=== PATIENT | male | born 1985 | race Hispanic/Latino ===

== ENCOUNTER 2023-03-04 22:18 | Observation (INO) | payer OTHER ==
[~2023-03-04] VITALS: Ht 162.6 cm; Wt 78.7 kg
[2023-03-04 22:54] LABS: BASOPHILS # (AUTO) 0.04 K/uL (0.00-0.20); BASOPHILS % (AUTO) 0.2 % (0.0-5.0); EOSINOPHILS # (AUTO) 0.17 K/uL (0.00-0.70); EOSINOPHILS % (AUTO) 0.8 % (0.0-8.0); HEMATOCRIT 37.4 % (42-54); IMMATURE GRANULOCYTE ABSOLUTE 0.09 K/uL (0-1); LYMPHOCYTES # (AUTO) 5.5 K/uL (1.0-4.8); LYMPHOCYTES % (AUTO) 25.3 % (21.0-51.0); MEAN CORPUSCULAR HEMOGLOBIN 28.8 pg (27.0-33.0); MEAN CORPUSCULAR HGB CONC 35.8 g/dL (32.0-36.0); MEAN CORPUSCULAR VOLUME 80.4 fL (79-99); MONOCYTES # (AUTO) 1.5 K/uL (0.1-1.0); MONOCYTES % (AUTO) 6.8 % (3.0-13.0); NEUTROPHILS # (AUTO) 14.4 K/uL (1.8-7.7); NEUTROPHILS % (AUTO) 66.5 % (40.0-77.0); PLATELET COUNT (AUTO) 261 K/uL (130-400); RED BLOOD CELL COUNT(AUTO) 4.65 MIL/uL (4.50-6.20); RED CELL DISTRIBUTION WIDTH 12.2 % (11.0-15.5); WHITE BLOOD COUNT (AUTO) 21.7 K/uL (4.8-10.8)
[2023-03-04 23:04] LABS: CREATININE 1.2 mg/dL (0.5-1.5); POTASSIUM 5.3 mmol/L (3.5-5.1)
[2023-03-04 23:08] LABS: ALBUMIN 3.5 g/dL (3.5-5.0); BILIRUBIN,TOTAL 0.6 mg/dL (0.2-1.0); TOTAL PROTEIN, SERUM 8.4 g/dL (6.0-8.3)
[2023-03-04 23:21] LABS: EOSINOPHILS % (MANUAL) 2 % (1-6); LYMPHOCYTES % (MANUAL) 27 % (22-44); MONOCYTES % (MANUAL) 6 % (2-9); SEGMENTED NEUTROPHILS % 65 % (40-70); TOTAL CELLS COUNTED 100
[2023-03-04 23:22] LABS: MAN.DIFF COMMENT-IMPRESSION MANUAL DIFFERENTIAL
[2023-03-04] MEDS ORDERED: IOHEXOL-350 75 ML VIAL IV ONE (23:49)
[2023-03-05] VITALS (27 sets, daily range): BP systolic 91–165; BP diastolic 39–98; PULSE 67–97; RESP 14–19; O2SAT 98–100
[2023-03-05] MEDS ORDERED: 0.9%NACL 1000ML 1,000 ML IV ONE
[2023-03-05] MEDS ORDERED: ZOSYN 3.375GM +NS 50ML IV ONE (01:30)
[2023-03-05] MEDS ORDERED: MORPHINE 2 MG SYG IVP ONE (01:30)
[2023-03-05] MEDS: ZOSYN 3.375GM +NS 50ML IVPB SCH ×3 (02:00→18:11)
[2023-03-05] MEDS ORDERED: ONDANSETRON 4MG INJ IVP PRN (02:00)
[2023-03-05] MEDS ORDERED: HYDROMORPHONE 0.5 MG SYG (0.5MG/0.5ML) IVP PRN (02:00)
[2023-03-05] MEDS: 0.9%NACL 1000ML 1,000 ML IV SCH ×2 (02:04→15:18)
[2023-03-05 07:01] LABS: APPEARANCE,URINE CLEAR (CLEAR); BILIRUBIN,URINE NEGATIVE (NEGATIVE); COLOR,URINE LIGHT-YELLOW (YELLOW); GLUCOSE, URINE (UA) 300 mg/dL (NEGATIVE); KETONES,URINE NEGATIVE (NEGATIVE); LEUKOCYTE ESTERASE ,URINE NEGATIVE Leu/uL (NEGATIVE); NITRATE,URINE NEGATIVE (NEGATIVE); OCCULT BLOOD,URINE SMALL (NEGATIVE); PH,URINE 5.5 (5.0-8.0); PROTEIN,URINE 30 mg/dL (NEGATIVE); UROBILINOGEN,URINE 0.2 mg/dL (0.2-1.0)
[2023-03-05 07:02] LABS: ADD UA MICROSCOPIC YES
[2023-03-05 07:05] LABS: MUCUS,URINE RARE LPF (None Seen); SQUAMOUS EPITHELIAL CELL,UR RARE /HPF (0-2)
[2023-03-05 07:32] LABS: HEMATOCRIT 36.3 % (42-54); MEAN CORPUSCULAR HEMOGLOBIN 29.2 pg (27.0-33.0); MEAN CORPUSCULAR HGB CONC 35.3 g/dL (32.0-36.0); MEAN CORPUSCULAR VOLUME 82.9 fL (79-99); PLATELET COUNT (AUTO) 263 K/uL (130-400); RED BLOOD CELL COUNT(AUTO) 4.38 MIL/uL (4.50-6.20); RED CELL DISTRIBUTION WIDTH 12.3 % (11.0-15.5); WHITE BLOOD COUNT (AUTO) 16.2 K/uL (4.8-10.8)
[2023-03-05 07:43] LABS: CREATININE 1.1 mg/dL (0.5-1.5); MAGNESIUM 1.6 mg/dL (1.80-2.40); POTASSIUM 4.1 mmol/L (3.5-5.1)
[2023-03-05 08:32] LABS: BASOPHILS % (MANUAL) 1 % (0-2); EOSINOPHILS % (MANUAL) 2 % (1-6); LYMPHOCYTES % (MANUAL) 25 % (22-44); MAN.DIFF COMMENT-IMPRESSION MANUAL DIFFERENTIAL; MONOCYTES % (MANUAL) 6 % (2-9); PLATELET MORPHOLOGY COMMENT ADEQUATE; SEGMENTED NEUTROPHILS % 66 % (40-70); TOTAL CELLS COUNTED 100
[2023-03-05] MEDS: INSULIN GLARGINE 100 UNITS/ML 10 ML VIAL SQ SCH (08:57)
[2023-03-05] MEDS: INSULIN HUMULIN R 100 UNIT/ML 3ML SQ SCH ×4 (08:58→20:27)
[2023-03-05] MEDS ORDERED: BUPIVACAINE/PF 0.25% 30ML VIAL IJ ONE (12:03)
[2023-03-05] MEDS ORDERED: LIDOCAINE 2%-EPI 1:200,000 20 ML VIAL IJ ONE (12:03)
[2023-03-05] MEDS ORDERED: CEFAZOLIN SODIUM 1 GM VIAL ONE (12:03)
[2023-03-05] MEDS ORDERED: MIDAZOLAM HCL 1 MG/ML 2ML VIAL ONE (13:03)
[2023-03-05] MEDS ORDERED: PROPOFOL 10 MG/ML 20ML VIAL IV ONE (13:03)
[2023-03-05] MEDS ORDERED: SUCCINYLCHOLINE CHLORIDE 20 MG/ML 10 ML VIAL ONE (13:03)
[2023-03-05] MEDS ORDERED: LIDOCAINE PF 100MG/5ML (2%) SYRINGE 5ML ONE (13:03)
[2023-03-05] MEDS ORDERED: ROCURONIUM BROMIDE 10MG/1ML 5ML VL ONE (13:03)
[2023-03-05] MEDS ORDERED: FENTANYL CITRATE PF 50 MCG/1 ML 2ML VIAL ONE (13:06)
[2023-03-05] MEDS ORDERED: BUPIVACAINE/EPI/PF 0.25% 30ML VIAL IJ ONE (13:27)
[2023-03-05] MEDS ORDERED: GLYCOPYRROLATE 1 MG/5 ML SYRINGE ONE (13:28)
[2023-03-05] MEDS ORDERED: NEOSTIGMINE 5MG/5ML SYR IV ONE (13:51)
[2023-03-05] MEDS ORDERED: KETOROLAC 30MG VIAL (30MG/ML) ONE (14:06)
[2023-03-05] MEDS ORDERED: MEPERIDINE-PF 25 MG/ML SYG ONE (14:06)
[2023-03-06] MEDS: 0.9%NACL 1000ML 1,000 ML IV SCH ×2 (01:18→10:00)
[2023-03-06] MEDS: ZOSYN 3.375GM +NS 50ML IVPB SCH ×2 (01:27→09:59)
[2023-03-06 01:32] VITALS: BP 160/87; PULSE 80
[2023-03-06 03:00] VITALS: BP 163/92; PULSE 80; RESP 18
[2023-03-06 04:00] LABS: BASOPHILS # (AUTO) 0.02 K/uL (0.00-0.20); BASOPHILS % (AUTO) 0.2 % (0.0-5.0); EOSINOPHILS # (AUTO) 0.05 K/uL (0.00-0.70); EOSINOPHILS % (AUTO) 0.4 % (0.0-8.0); HEMATOCRIT 34.5 % (42-54); IMMATURE GRANULOCYTE ABSOLUTE 0.04 K/uL (0-1); LYMPHOCYTES # (AUTO) 2.5 K/uL (1.0-4.8); LYMPHOCYTES % (AUTO) 19.3 % (21.0-51.0); MEAN CORPUSCULAR HEMOGLOBIN 28.8 pg (27.0-33.0); MEAN CORPUSCULAR HGB CONC 35.4 g/dL (32.0-36.0); MEAN CORPUSCULAR VOLUME 81.4 fL (79-99); MONOCYTES # (AUTO) 0.8 K/uL (0.1-1.0); MONOCYTES % (AUTO) 6.1 % (3.0-13.0); NEUTROPHILS # (AUTO) 9.7 K/uL (1.8-7.7); NEUTROPHILS % (AUTO) 73.7 % (40.0-77.0); PLATELET COUNT (AUTO) 251 K/uL (130-400); RED BLOOD CELL COUNT(AUTO) 4.24 MIL/uL (4.50-6.20); WHITE BLOOD COUNT (AUTO) 13.1 K/uL (4.8-10.8)
[2023-03-06 04:27] LABS: CREATININE 0.8 mg/dL (0.5-1.5); MAGNESIUM 1.6 mg/dL (1.80-2.40); POTASSIUM 3.9 mmol/L (3.5-5.1)
[2023-03-06] MEDS: INSULIN HUMULIN R 100 UNIT/ML 3ML SQ SCH (06:12)
[2023-03-06] MEDS: INSULIN GLARGINE 100 UNITS/ML 10 ML VIAL SQ SCH (07:00)
[2023-03-06 07:40] VITALS: O2SAT 100
[2023-03-06 08:00] VITALS: BP 162/95; PULSE 72; RESP 20
[2023-03-06 12:00] VITALS: BP 153/94; PULSE 82; RESP 18
== END 2023-03-06 15:15 | disposition home or self-care (01) ==
LOC: EDH 22:18 → EDHIP 03-05 01:35 → INTOOBSV 03-05 01:35 → 4CH 03-05 02:40
PROVIDERS: ADMIT Internal Medicine; ATTEND Internal Medicine
DX: K35.80 Unspecified acute appendicitis (principal); R10.84 Generalized abdominal pain; D72.829 Elevated white blood cell count, unspecified; R11.2 Nausea with vomiting, unspecified; E11.9 Type 2 diabetes mellitus without complications; I10 Essential (primary) hypertension; E78.5 Hyperlipidemia, unspecified; Z86.16 Personal history of COVID-19
CPT/HCPCS: 99285; 82550; 84484; 80053; 83690; 85025 ×3; 82948 ×8; 74178; 93005; 44970; 96372; 96361; 96365; 96366 ×2; 96375; 83735 ×2; 80048 ×2; 81001; 36415 ×2; 88304; Q9967; J7030; A4344; J3010; J0690; J3490 ×4; J2710; J0330; J2270; J0665; J2001; J2250; J2704; J2543 ×5; J1170; C1769 ×3; A4649 ×4; A4930; G0378 ×3; J1885; J2175

== ENCOUNTER 2024-04-05 08:31 | Emergency (ER) | payer SELFPAY ==
[~2024-04-05] VITALS: Ht 162.6 cm; Wt 79.4 kg
[2024-04-05 09:08] LABS: BASOPHILS # (AUTO) 0.02 K/uL (0.00-0.20); BASOPHILS % (AUTO) 0.2 % (0.0-5.0); EOSINOPHILS # (AUTO) 0.02 K/uL (0.00-0.70); EOSINOPHILS % (AUTO) 0.2 % (0.0-8.0); HEMATOCRIT 42.8 % (42-54); IMMATURE GRANULOCYTE ABSOLUTE 0.02 K/uL (0-1); LYMPHOCYTES # (AUTO) 1.6 K/uL (1.0-4.8); LYMPHOCYTES % (AUTO) 19.1 % (21.0-51.0); MEAN CORPUSCULAR HEMOGLOBIN 28.7 pg (27.0-33.0); MEAN CORPUSCULAR HGB CONC 35.3 g/dL (32.0-36.0); MEAN CORPUSCULAR VOLUME 81.4 fL (79-99); MONOCYTES # (AUTO) 1.5 K/uL (0.1-1.0); MONOCYTES % (AUTO) 17.6 % (3.0-13.0); NEUTROPHILS # (AUTO) 5.4 K/uL (1.8-7.7); NEUTROPHILS % (AUTO) 62.7 % (40.0-77.0); PLATELET COUNT (AUTO) 176 K/uL (130-400); RED BLOOD CELL COUNT(AUTO) 5.26 MIL/uL (4.50-6.20); WHITE BLOOD COUNT (AUTO) 8.6 K/uL (4.8-10.8)
--- NOTE | 2024-04-05 09:20 | ERN ---
General Chief Complaint: Cough Stated Complaint: COUGH Time Seen by MD: 08:50 History of Present Illness Initial Comments Mr. Lora 38-year-old male with past medical history of Diabetes came to ER with complaints of generalized weakness shortness of breath, cough and vomiting since the 3 days. 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 No recent traveling history. He denies chest pain or palpitations or dizziness. Patient is noncompliant with his diabetic medication. Allergies: Coded Allergies: No Known Allergies (Unverified Allergy, Unknown, 03/04/23) Home Meds No Active Prescriptions or Reported Meds Past Medical History Past Medical History: No Pertinent History Past Surgical History: Appendectomy Family History Family History: Negative Social History Social History: Negative, Lives with family ROS Dictation ROS Constitutional: No appetite loss, No fevers, chills , No night sweats, No weakness, fatigue Eye: No vision change, No redness, pain or discharge ENT: No hearing loss, ear pain or discharge, No nose bleeds, No sore throat, Neck: No swelling. pain or stiffness Respiratory: Cough, shortness of breath since 3 days Cardiovascular: No chest pain,, palpitations, dyspnea, No edema Gastrointestinal: No abdominal pain, nausea, vomiting, No diarrhea, constipation Genitourinary: No painful urination, No blood in urine, No urinary incontinence, No frequency or urgency Musculoskeletal: No joint pain, muscle pain, swelling or stiffness Neurological: No numbness, tingling, No weakness, tremors or seizures Physical Exam Physical Exam Dictation General: Alert & Oriented, in moderate distress. EENT: No conjunctival redness or discharge noted Tympanic membranes are clear, Normal hearing, Oral mucosa is moist, No pharyngeal erythema, No nasal discharge, No oral lesions. Neck: Non-tender, No jugular vein distention, No lymphadenopathy, No thyromegaly, Supple. Respiratory: Lungs are clear to auscultation, Breath sounds are equal, No chest wall tenderness, _. Cardiovascular: Normal rate, Normal rhythm, No murmur, Good pulses equal in all extremities, Normal peripheral perfusion, No edema. Gastrointestinal: Soft, Non-tender, Non-distended, Normal bowel sounds, No organomegaly, _. Musculoskeletal: Normal range of motion, Normal strength, No tenderness, No swelling, No deformity, Normal gait. Integumentary: Warm, Dry, [place], Intact, No pallor, No rash. Neurologic: Alert, Oriented x4, Normal sensory, No focal defects Psychiatric: Cooperative, Appropriate mood & affect, Normal judgement, Non- suicidal. Results Laboratory and Microbiology Lab and Micro Result Laboratory Tests Test 04/05/24 08:40 04/05/24 08:50 04/05/24 09:03 Urine Color LIGHT-YELLOW (YELLOW) Urine Appearance CLEAR (CLEAR) Urine pH 5.5 (5.0-8.0) Urine Specific [place] 1.026 (1.001-1.031) Urine Protein 70 mg/dL (NEGATIVE) H Urine Glucose (UA) >=1000 mg/dL (NEGATIVE) H Urine Ketones NEGATIVE mg/dL (NEGATIVE) Urine Occult Blood MODERATE (NEGATIVE) H Urine Nitrate NEGATIVE (NEGATIVE) Urine Bilirubin NEGATIVE mg/dL (NEGATIVE) Urine Urobilinogen 0.2 mg/dL (0.2-1.0) Urine Leukocyte Esterase NEGATIVE Isidro/uL Urine RBC 2-5 /HPF (0-1) H Urine WBC 0-1 /HPF (0-1) Urine Squamous Epithelial Cells RARE /HPF (0-2) Urine Bacteria None /HPF (None Seen) White Blood Count 8.6 K/uL (4.8-10.8) Red Blood Count 5.26 MIL/uL (4.50-6.20) Hemoglobin 15.1 g/dL (14.0-18.0) Hematocrit 42.8 % (42-54) Mean Corpuscular Volume 81.4 fL (79-99) Mean Corpuscular Hemoglobin 28.7 pg (27.0-33.0) Mean Corpuscular Hemoglobin Concent 35.3 g/dL (32.0-36.0) Red Cell Distribution Width 12.0 % (11.0-15.5) Platelet Count 176 K/uL (130-400) Mean Platelet Volume 10.9 fL (7.5-10.5) H Immature Granulocyte % (Auto) 0.2 % (0-1) Neutrophils (%) (Auto) 62.7 % (40.0-77.0) Lymphocytes (%) (Auto) 19.1 % (21.0-51.0) L Monocytes (%) (Auto) 17.6 % (3.0-13.0) H Eosinophils (%) (Auto) 0.2 % (0.0-8.0) Basophils (%) (Auto) 0.2 % (0.0-5.0) Neutrophils # (Auto) 5.4 K/uL (1.8-7.7) Lymphocytes # (Auto) 1.6 K/uL (1.0-4.8) Monocytes # (Auto) 1.5 K/uL (0.1-1.0) H Eosinophils # (Auto) 0.02 K/uL (0.00-0.70) Basophils # (Auto) 0.02 K/uL (0.00-0.20) Absolute Immature Granulocyte (auto 0.02 K/uL (0-1) Nucleated Red Blood Cells 0.0 % (0.0-0.19) White Cell Morphology Comment See comments Sodium Level 129 mmol/L (136-145) L Potassium Level 4.6 mmol/L (3.5-5.1) Chloride Level 96 mmol/L (101-111) L Carbon Dioxide Level 27 mmol/L (21-32) Blood Urea Nitrogen 15 mg/dL (7-18) Creatinine 1.2 mg/dL (0.5-1.3) Glomerular Filtration Rate Calc 80 mL/min (>90) Random Glucose 310 mg/dL (70-105) H Lactic Acid Level 1.8 mmol/L (0.8-2.5) Total Calcium 9.0 mg/dL (8.5-10.1) Total Creatine Kinase 103 U/L (21-232) Troponin I High Sensitivity 6 ng/L (4-75) Influenza Type A Antigen Positive For Type A Influenza Type B Antigen Negative For Type B SARS-CoV-2 Antigen (Rapid) PRESUMPTIVE NEGATIVE Group A Streptococcus Rapid negative (NEGATIVE) EKG/XRAY/US/CT/MRI EKG Comment PATIENT: TRESA LORA MR#: [id number] : 1985 SEX: M AGE: 38 LOCATION: [facility] ORDER 3 STATUS: REG ER REPORT#: [id number] SERVICE 2 REASON: COUGH, SOB ORDERING PHYSICIAN: SHQA LOPEZ MD PROCEDURE: CXR1VW - CHEST 1VW CHEST 1VW REASON: COUGH, SOB COMPARISON: None. FINDINGS: Single view of the chest was obtained. Lungs are clear. Heart size is normal. There is no pulmonary vascular congestion. Mediastinum and bony thorax appear unremarkable. IMPRESSION: 1. Normal single view chest x-ray. DICTATED BY: CAROLE SONG MD DATE: 04/05/24 1000 ELECTRONICALLY SIGNED BY: CAROLE SONG MD DATE: 04/05/24 1002 X-RAY Comment PATIENT: TRESA LORA MR#: [id number] : 1985 SEX: M AGE: 38 LOCATION: [facility] ORDER 3 STATUS: [facility] REPORT#: [id number] SERVICE 2 REASON: COUGH, SOB ORDERING PHYSICIAN: SHAQ LOPEZ MD PROCEDURE: CXR1VW - CHEST 1VW CHEST 1VW REASON: COUGH, SOB COMPARISON: None. FINDINGS: Single view of the chest was obtained. Lungs are clear. Heart size is normal. There is no pulmonary vascular congestion. Mediastinum and bony thorax appear unremarkable. IMPRESSION: 1. Normal single view chest x-ray. DICTATED BY: CAROLE SONG MD DATE: 04/05/24 1000 ELECTRONICALLY SIGNED BY: CAROLE SONG MD DATE: 04/05/[address] [facility] MDM POTENTIAL DIFFERENTIAL DIAGNOSES INCLUDE: URI INFLUENZA PNEUMONIA ASSESSMENT: I WILL ORDER A CBC AND CMP AND ADMINISTER MEDICATIONS ACCORDING TO THE PATIENT'S COMPLAINT. WILL ORDER FLUIDS FOR ADEQUATE HYDRATION. I WILL RE-EVALUATE THE PATIENT AFTER TREATMENT AND DIAGNOSTIC EXAMS HAVE RETURNED TO DETERMINE WHETHER THEY REQUIRE FURTHER TESTING, CAN BE SAFELY DISCHARGED HOME, OR NEED ADMISSION FOR FURTHER TREATMENT AND EVALUATION. GIVEN THE SOCIAL DETERMINANTS OF HEALTH AFFECTING CARE, INCLUDING LITERACY, ACCESS TO MEDICAL CARE, PRESCRIPTION DRUG MANAGEMENT, AND [facility], I WILL ENSURE THAT TREATMENT PLANS ARE TAILORED ACCORDINGLY. REVALUATION : PATIENT IS ALERT AND ORIENTED. STATES HE FEELS A LOT BETTER . HEART RATE AND TEMPERATURE HAS COME DOWN, HE IS HEMODYNAMICALLY STABLE. WILL DISCHARGE THE PATIENT WITH TAMIFLU AND FOLLOW UP WITH PCP IN 2-3 DAYS. DISPOSITION: WILL DISCHARGE PATIENT AT THIS TIME WITH PRESCRIPTION OF TAMIFLU PO AND INSTRUCTIONS TO FOLLOW UP WITH PCP FOR FURTHER EVALUATION AND TREATMENT. ED Course Orders Procedure Category Date Status Time Iv Insertion CPOE 04/05/24 Transmitted 08:54 Pulse Ox(Continuous) RT 04/05/24 Transmitted 08:54 Vital Signs Per CPOE 04/05/24 Transmitted Routine 08:54 12 Lead Ekg Tracing- EKG 04/05/24 Complete Technical 08:54 Cbc With Differential LAB 04/05/24 Complete 08:54 Blood Cult SERVANDO 04/05/24 In Process 08:54 Urinalysis Profile LAB 04/05/24 Complete 08:54 Culture Urine SERVANDO 04/05/24 In Process 08:54 Creatine Kinase, Total LAB 04/05/24 Complete 08:54 Troponin I High LAB 04/05/24 Complete Sensitivity 08:54 Lactic Acid LAB 04/05/24 Complete 08:54 Basic Metabolic Panel LAB 04/05/24 Complete 08:54 Influenza Type A & B, LAB 04/05/24 Complete Rapid 09:00 Rapid (Group A Strep) LAB 04/05/24 Complete 09:00 Covid19 (Sars Antigen LAB 04/05/24 Complete Rapid) 09:00 0.9%Nacl 1000ml (Ns PHA 04/05/24 Complete 1000ml) 09:30 Ceftriaxone 1g Vial PHA 04/05/24 Complete (Rocephine 1g Inj) 09:30 Chest 1vw RAD 04/05/24 Resulted 09:13 Acetaminophen 500mg PHA 04/05/24 Complete Tab (Tylenol 500mg T 09:30 Oseltamivir Phosphate PHA 04/05/24 Complete (Tamiflu) 10:30 Ondansetron 4mg Inj PHA 04/05/24 Complete (Zofran 4mg Inj) 10:30 Ibuprofen 800 Mg Tab PHA 04/05/24 Complete (Motrin) 12:00 Current Medications Medications (Trade) Dose Ordered Sig/Isaiah Route PRN Reason Start Time Stop Time Status Last Admin Dose Admin Acetaminophen (TYLenol 500MG TAB) 1,000 mg ONCE ONCE PO 04/05/24 09:30 04/05/24 09:31 DC 04/05/24 09:32 Ceftriaxone Sodium (ROCEphine 1G INJ) 1 gm ONCE ONCE IVPB 04/05/24 09:30 04/05/24 09:31 DC 04/05/24 09:29 Ibuprofen (moTRIN) 800 mg ONCE ONCE PO 04/05/24 12:00 04/05/24 12:01 DC 04/05/24 11:57 Ondansetron HCl (zoFRAN 4MG INJ) 4 mg ONCE ONCE IVP 04/05/24 10:30 04/05/24 10:31 DC 04/05/24 10:18 Oseltamivir Phosphate (Tamiflu) 75 mg ONCE ONCE PO 04/05/24 10:30 04/05/24 10:31 DC 04/05/24 10:18 Sodium Chloride 2,382 ml @ 794 mls/hr ONCE ONCE IV 04/05/24 09:30 04/05/24 12:29 DC 04/05/24 09:29 Vital Signs Date Time Temp Pulse Resp B/P (MAP) Pulse Ox O2 Delivery O2 Flow Rate FiO2 04/05/24 13:18 98.2 95 20 130/78 98 Room Air* 0 21 04/05/24 11:57 100.4 04/05/24 11:18 100.4 109 20 145/74 98 Room Air* 0 21 04/05/24 09:32 100.8 04/05/24 08:38 101.3 113 20 125/75 97 Room Air* 0 21 04/05/24 08:35 101.3 113 22 125/75 97 Room Air 0 Sepsis protocol was initiated due to sinus tachycardia and fever and patient was started on IV fluids and a dose of Rocephin was given. Labs came back positive for influenza a and chest x-ray was normal. 2:30 p.m., patient feels better, his heart rate and temperature has come down. His glucose is currently 232. Patient has history of medication noncompliance with diabetes, have requested him to follow up with his PCP and we will discharge him today with prescription of Tamiflu. DX & DISP Disposition: Discharge Departure Impression: Primary Impression: Influenza A Critical Time: 30 minutes Condition: Stable Scripts Oseltamivir Phosphate (Tamiflu) 75 Mg Cap 1 CAP PO BID for 5 Days, #9 CAP 0 Refills Prov: SHAQ LOPEZ MD 04/05/24 Additional Instructions: Patient and the caregiver have been informed of all the diagnostic tests and the imaging conducted during the today's visit to the emergency room and has verbalized understanding of the results I have personally reviewed and interpreted all diagnostic exams performed here in the ER today as well as the vital signs documented by the nursing staff. The patient is now being discharged to home and should follow up with the primary care physician or the specialist as directed by the ER staff. Follow-up with primary care provider in 1 to 2 days. Take medications as directed here in the emergency room. Okay to continue home medications unless otherwise discussed during your visit in the emergency room today. Return to your nearest emergency room if symptoms worsen or if there is no improvement. Call 911 if you need immediate assistance. Take Tylenol or Motrin [id number] as needed and if no contraindications are present. Increase oral hydration. Referrals: CHARLOTTE LIEBERMAN MD (PCP) ATTESTATION BY PHYSICIAN I have seen and examined the patient. I reviewed the documentation, medical decision making, and treatment plan as noted by the resident provider above. I agree with the findings and plan of care. Chapo Renee MD, NIHITHA MD Apr 05, 2024 09:20
[2024-04-05 09:22] LABS: RAPID GROUP A STREP negative (NEGATIVE)
[2024-04-05 09:22] LABS: APPEARANCE,URINE CLEAR (CLEAR); BILIRUBIN,URINE NEGATIVE (NEGATIVE); COLOR,URINE LIGHT-YELLOW (YELLOW); GLUCOSE, URINE (UA) >=1000 mg/dL (NEGATIVE); KETONES,URINE NEGATIVE (NEGATIVE); LEUKOCYTE ESTERASE ,URINE NEGATIVE Leu/uL (NEGATIVE); NITRATE,URINE NEGATIVE (NEGATIVE); OCCULT BLOOD,URINE MODERATE (NEGATIVE); PH,URINE 5.5 (5.0-8.0); PROTEIN,URINE 70 mg/dL (NEGATIVE); UROBILINOGEN,URINE 0.2 mg/dL (0.2-1.0)
[2024-04-05 09:29] LABS: CREATININE 1.2 mg/dL (0.5-1.3); POTASSIUM 4.6 mmol/L (3.5-5.1)
[2024-04-05] MEDS: cefTRIAXone 1G VIAL IVPB ONE (09:29)
[2024-04-05] MEDS: 0.9%NACL 1000ML 2,382 ML IV ONE (09:29)
[2024-04-05 09:31] LABS: COVID19 (SARS ANTIGEN RAPID) PRESUMPTIVE NEGATIVE (NEGATIVE)
[2024-04-05 09:32] LABS: INFLUENZA TYPE B Negative For Type B (NEGATIVE)
[2024-04-05] MEDS: acetaMINOPHEN 500 MG TABLET PO ONE (09:32)
[2024-04-05 09:34] LABS: ADD UA MICROSCOPIC YES
[2024-04-05 09:37] LABS: SQUAMOUS EPITHELIAL CELL,UR RARE /HPF (0-2); WBC,URINE 0-1 /HPF (0-1)
[2024-04-05 09:48] LABS: INFLUENZA TYPE A Positive For Type A (NEGATIVE)
--- NOTE | 2024-04-05 10:02 | HMCIMG ---
CHEST 1VW REASON: COUGH, SOB COMPARISON: None. FINDINGS: Single view of the chest was obtained. Lungs are clear. Heart size is normal. There is no pulmonary vascular congestion. Mediastinum and bony thorax appear unremarkable. IMPRESSION: 1. Normal single view chest x-ray.
[2024-04-05] MEDS: ondanSETRON 4MG INJ IVP ONE (10:18)
[2024-04-05] MEDS: OSELTAMIVIR PHOSPHATE 75 MG CAP PO ONE (10:18)
--- NOTE | 2024-04-05 11:42 | EKG ---
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
[2024-04-05] MEDS: ibuPROFEN 800 MG TAB PO ONE (11:57)
[2024-04-05 13:52] VITALS: TEMP 98.3
[2024-04-05] MEDS ORDERED: OSEL75 PO (14:36)
[2024-04-05 15:00] VITALS: BP 140/79; PULSE 89; RESP 20; TEMP 98.2; O2SAT 98
== END 2024-04-05 15:02 | disposition home or self-care (01) ==
LOC: EDH 08:31
DX: J10.1 Influenza due to other identified influenza virus with other respiratory manifestations (principal); E11.9 Type 2 diabetes mellitus without complications; Z90.49 Acquired absence of other specified parts of digestive tract; Z91.148 Patient's other noncompliance with medication regimen for other reason; Z20.822 Contact with and (suspected) exposure to COVID-19
CPT/HCPCS: 99285; 96365; 96366; 71045; 96375; 87426; 82550; 84484; 80048; 85025; 87040 ×2; 87086; 87880; 87804 ×2; 82948; 83605; 81001; 36415; 93005; J0696; J2405